=== PATIENT | female | born 1990 | race Caucasian/White ===

== ENCOUNTER → 2022-08-12 | Outpatient (CLI) | payer BC ==
[~2022-08-12] MED LIST: ADDERALL XR30 MG PO; ADDERALL10 MG PO; BACTRIM DS 8001 TAB PO; CIPRO 500MG TA500 MG PO; NAPROSYN500 MG PO; NECON 1/50 0.051 TAB PO; PROTONIX 40MG T40 MG PO
== END ==
LOC: COL.RAD 07:00
DX: R10.11 Right upper quadrant pain (principal)
CPT/HCPCS: A9537; J2805